=== PATIENT | female | born 1955 | race Caucasian/White ===

== ENCOUNTER → 2016-07-22 | Outpatient (REF) ==
--- NOTE | 2016-07-22 12:18 | REP ---
PARTIAL LUMBAR SPINE, THREE VIEWS: HISTORY: Degenerative disc disease. There is no acute fracture or subluxation. The L1-2 and L4-5 intervertebral discs are decreased in height consistent with disc degeneration. Osteophytes are present on L4 and L5. IMPRESSION: Degenerative change as described above. Signed by Martin Joseph MD 07/22/2016 12:20 P
--- NOTE | 2016-07-22 12:56 | REP ---
BILATERAL HIP, AP PELVIS, FIVE VIEWS: HISTORY: Degenerative joint disease. RIGHT HIP: There is no acute fracture or dislocation. There is narrowing of the joint space. IMPRESSION: Degenerative change as described above. LEFT HIP: The patient is status post left hip arthroplasty. There is no acute fracture or dislocation. Calcifications are present in the soft tissue superior and lateral to the greater trochanter. This represents ligamentous or tendon calcification. IMPRESSION: The patient is status post left hip arthroplasty. Signed by Martin Joseph MD 07/22/2016 01:05 P
== END ==
LOC: M SMT 11:11
PROVIDERS: ATTEND Internal Medicine
DX: M54.5 Low back pain (principal)